=== PATIENT | female | born 1995 | race Caucasian/White ===

== ENCOUNTER 2020-01-29 20:09 | Day surgery (SDC) | payer OTHER ==
[2020-01-29] MEDS ORDERED: hydrALAZINE 20 MG/ML VIAL SLOW IVP PRN (20:59)
[2020-01-29 21:17] VITALS: BP 110/67; TEMP 98.4; BMI 38.6
--- NOTE | 2020-01-29 21:17 | PDOC.FPROB ---
FMR OB H&P: HPI - History of Present Illness Chief Complaint: leaking of fluid Indentification: 24 y/o @ 32.3 WGA History of Present Illness: Presents because she noticed her panties were wet at work around 5pm. She got concerned because she kept feeling that wetness so she went to the ED. Denies vaginal bleeding, ctx. Endorses movement. Primary Care Physician: Dr. Montoya FMR OB H&P: Current - Care : 6 Para: 2031 Gestational age: 32.3 Due date: 03/22/20 FMR OB H&P: History - Past Medical History PMH: Denies - OB History OB History: 2 term 3 elective Ab with d&c - MAT PUNCHER History MAT PUNCHER History: Denies any h/o sti's - Surgical History Sx History: cholecystectomy, benign lump removal from R breast - Social History Social History: Denies tobacco, EtOH, or drug use - Family History Family History: Mom - HTN Dad - HTN FMR OB H&P: Medications - Current Home Medications: Medication Instructions Recorded Confirmed Type Vits96/Iron Fum/Folic 1 tab PO DAILY 01/29/20 01/29/20 History [ Tablet] Allergies/Adverse Reactions: Allergies Allergy/AdvReac Type Severity Reaction Status Date / Time No Known Allergies Allergy Verified 01/29/20 21:07 FMR OB H&P: ROS - Review of Systems General: denies: fever/chills, weight/appetite/sleep changes Eyes: denies: vision changes, double vision ENT: denies: nasal congestion, sore throat Cardiovascular: denies: chest pain, edema Respiratory: denies: cough, shortness of breath Gastrointestinal: denies: nausea, vomiting, diarrhea Genitourinary (Female): reports: vaginal discharge. denies: dysuria, vaginal bleeding, contractions Musculoskeletal: denies: pain, swelling Neurologic: denies: numbness, weakness Integumentary: denies: itching, rash Psychological: denies: depression, anxiety FMR OB H&P: Vital Signs - Maternal Vital signs: BP 110/67, HR 98, Temp 99.6, O2 sat 98% on RA, RR 16 - Heart Tones Baseline: 135 Variability: moderate Acceleration: present Deceleration: absent Category: category 1 [place] contractions every: none FMR OB H&P: Physical Exam - Physical Exam General: NAD HEENT: normocephalic and atraumatic, MMM, conjunctiva clear, grossly normal vision, grossly normal hearing, other (poor dentition) Neck: supple, no LAD Heart: RRR, normal S1/S2, no murmurs/rubs/gallops, pulses present, no edema General: CTAB, no respiratory distress, good air movement, no rales/rhonchi, no wheezing Abdomen: soft, gravid, non-tender Musculoskeletal: normal gait and station, pulses present Skin: good tugor, capillary refill <2 seconds Lymphatic: no unusual bruising or bleeding, no purpura Psychiatric: intact recent and remote memory, good judgement and insight FMR OB H&P: A/P - Problem List (1) Vaginal discharge during Current Visit: Yes Status: Acute Code(s): O26.899 - OTH RELATED CONDITIONS, UNSPECIFIED TRIMESTER; N89.8 - OTHER SPECIFIED NONINFLAMMATORY DISORDERS OF VAGINA Qualifiers: Trimester: third trimester Qualified Code(s): O26.893 - Other specified related conditions, third trimester; N89.8 - Other specified noninflammatory disorders of vagina Assessment and Plan: Pt concerned about LOF -Will rule out ROM with amnisure and sterile spec if clinically indicated -Monitor FHT -Encourage PO hydration Disposition: pending results Discussion: Date/Time: 01/29/202114 This H&P was discussed with Dr. Whitaker who agrees with the above documentation and plan. Signature: Yamileth Alfonso MD, PGY-3 Addendum - Attending - Attending Attestation Date/Time: 01/29/202145 I personally evaluated the patient and discussed the management with Dr. Alfonso. I agree with the History, Examination, Assessment and Plan documented above.
[2020-01-29 21:29] LABS: Amnisure Test No Membranes Rupture (No Rupture)
[2020-01-29 21:30] LABS: Amnisure Internal Control QC ACCEPTABLE (ACCEPTABLE)
--- NOTE | 2020-01-29 21:43 | PDOC.BPN ---
<Yamileth Alfonso - Last Filed: 01/29/20 21:42> - Brief Progress Note Amnisure negative. Sterile speculum exam performed with no pooling or leaking on valsalva. Cervix on visual exam was closed and long. Will d/c home with labor precautions and f/u with Dr. Montoya <Anastacio Whitaker - Last Filed: 01/29/20 21:47> Addendum - Attending - Attending Attestation Date/Time: 01/29/20 [id number] I personally evaluated the patient and discussed the management with Dr. Alfonso. I agree with the History, Examination, Assessment and Plan documented above.
== END 2020-01-29 21:45 | disposition home or self-care (01) ==
LOC: L&D/OP 20:09
PROVIDERS: ATTEND Family Medicine
DX: O26.893 Other specified pregnancy related conditions, third trimester (principal); N89.8 Other specified noninflammatory disorders of vagina; Z3A.32 32 weeks gestation of pregnancy
CPT/HCPCS: 84112; 99285

== ENCOUNTER 2020-03-07 17:38 | Day surgery (SDC) | payer OTHER ==
[2020-03-07 17:43] VITALS: BMI 32.5
[2020-03-07 17:45] VITALS: BP 108/71; TEMP 99.1
[2020-03-07] MEDS ORDERED: hydrALAZINE 20 MG/ML VIAL SLOW IVP PRN (18:06)
--- NOTE | 2020-03-08 07:54 | SS ---
DATE OF ADMISSION: 03/07/2020 DATE OF DISCHARGE: 03/07/2020 REGULAR PHYSICIAN: Arnoldo Montoya MD EVALUATING PHYSICIAN: Anastacio Whitaker MD CHIEF COMPLAINT: Contractions at home. HISTORY OF PRESENT ILLNESS: Ms. Yao is a 24-year-old white, G6, P2 with an estimated date of confinement of 03/22/2020, who presents complaining of uterine contractions over the last three days, which she stated became stronger this afternoon. She denies ruptured membranes or vaginal bleeding. She reports active movement. Her care has been with Dr. Montoya and is reportedly uncomplicated. PAST OBSTETRICAL HISTORY: Vaginal delivery x2, three elective terminations. PAST MEDICAL HISTORY: None. PAST SURGICAL HISTORY: D and C x3 as above, removal of benign right breast cyst and cholecystectomy. CURRENT MEDICATIONS: vitamins. ALLERGIES: NO KNOWN ALLERGIES. SOCIAL HISTORY: Denies tobacco, alcohol, or drug use. FAMILY HISTORY: Unremarkable. REVIEW OF SYSTEMS: Denies nausea, vomiting, fever, chills, cough, recent travel, or decreased movement. PHYSICAL EXAMINATION: VITAL SIGNS: In triage, her vital signs are stable. She is afebrile. GENERAL: She is pleasant and in no acute distress. ABDOMEN: Soft, nontender, and gravid. PELVIC: Exam by Labor nurse shows the cervix to be fingertip dilated, 40% effaced with the vertex at the -2 position. heart rate tracing is reassuring with spontaneous accelerations. No decelerations are seen. No significant regular contractions are noted. ASSESSMENT: 1. 37 and 6/7th week intrauterine . 2. No evidence of active labor at this time. PLAN: Findings were reviewed with the patient. Labor precautions were reviewed with her in detail. She was dismissed to home with good understanding of her discharge precautions. Job ID: [id number]
== END 2020-03-07 18:18 | disposition home or self-care (01) ==
LOC: L&D/OP 17:38
PROVIDERS: ATTEND Family Medicine
DX: O47.1 False labor at or after 37 completed weeks of gestation (principal); O09.293 Supervision of pregnancy with other poor reproductive or obstetric history, third trimester; Z3A.37 37 weeks gestation of pregnancy
CPT/HCPCS: 99282